=== PATIENT | male | born 1970 | race Caucasian/White ===

== ENCOUNTER 2016-06-07 18:44 | Emergency (ER) | payer OTHER ==
[~2016-06-07] VITALS: Ht 185.4 cm; Wt 80.0 kg
[~2016-06-07 18:44] MED LIST: AUGM875T PO; DILA100C PO; IBUP800T23 PO; QUET1TAB66 PO; TRAZ50TA78 PO
[2016-06-07 19:08] VITALS: BP 147/83; PULSE 83; RESP 16; TEMP 98.1; O2SAT 97
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
[2016-06-08 06:46] VITALS: BP 118/66; PULSE 72; RESP 16; O2SAT 99
== END 2016-06-08 06:59 | disposition home or self-care (01) ==
LOC: NEPA 18:44
DX: F10.129 Alcohol abuse with intoxication, unspecified (principal); F17.210 Nicotine dependence, cigarettes, uncomplicated
CPT/HCPCS: 99284

== ENCOUNTER 2017-02-17 05:31 | Emergency (ER) | payer OTHER ==
[~2017-02-17] VITALS: Ht 182.9 cm; Wt 70.0 kg
[2017-02-17 05:37] VITALS: BP 117/76; PULSE 94; RESP 16; TEMP 98.6; O2SAT 95
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
== END 2017-02-17 08:11 | disposition home or self-care (01) ==
LOC: NEPC 05:31
DX: F10.920 Alcohol use, unspecified with intoxication, uncomplicated (principal)
CPT/HCPCS: 99281

== ENCOUNTER 2017-07-30 08:51 | Emergency (ER) | payer OTHER ==
[~2017-07-30] VITALS: Ht 182.9 cm; Wt 113.5 kg
[2017-07-30 09:18] VITALS: BP 124/65; PULSE 94; RESP 16; TEMP 98.2; O2SAT 97
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
[2017-07-30] MEDS ORDERED: TETANUS/DIPHTHERIA TOXOID ADULT 0.5 ML VIAL IM ONE (09:45)
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
[2017-07-30] MEDS ORDERED: LIDO1PAD52 TOPICAL (10:32)
[2017-07-30] MEDS ORDERED: IBUP1TAB7 PO (10:32)
== END 2017-07-30 10:52 | disposition home or self-care (01) ==
LOC: NEPK 08:51
DX: S22.41XA Multiple fractures of ribs, right side, initial encounter for closed fracture (principal); F12.90 Cannabis use, unspecified, uncomplicated; F17.200 Nicotine dependence, unspecified, uncomplicated; V86.96XA Unspecified occupant of dirt bike or motor/cross bike injured in nontraffic accident, initial encounter
CPT/HCPCS: 71101; 94150; 99283